=== PATIENT | male | born 1970 | race Caucasian/White ===

== ENCOUNTER 2024-11-13 10:15 | Day surgery (SDC) | payer OTHER ==
[~2024-11-13] VITALS: Ht 170.2 cm; Wt 84.3 kg
[~2024-11-13 10:15] MED LIST: ACETAMINOPHEN 1000MG/100ML IV BAG As Ordered ONE; GLYCOPYRROLATE INJ 0.2 MG/ML 2 ML VIAL As Ordered ONE; HYDR50TA70 PO; KETOROLAC 30 MG/ML 1ML VIAL As Ordered ONE; LIDOCAINE 2% 100MG/5ML SDV (FOR ANES.) As Ordered ONE; LISI20TA33 PO; LISI20TA35 PO; MELO15TA28 PO; MIDAZOLAM INJ 2MG/2ML VIAL As Ordered ONE; NIFE10CA61 PO; OMEP-173 PO; ONDANSETRON 4MG 2ML VIAL As Ordered ONE; ROSU10TA61 PO; SILD50TA2 PO; fentaNYL 100 MCG/2 ML INJECTION As Ordered ONE; propofoL 200 MG/20 ML VIAL As Ordered ONE
[2024-11-13] MEDS ORDERED: LR 1,000 ML IV SCH ×2 (10:30→13:00)
[2024-11-13] MEDS: ceFAZolin SOD 2 GM IV ONCE IV ONE (11:53)
[2024-11-13] MEDS: LIDOCAINE 1% MDV 20ML VIAL As Ordered ONE (11:56)
[2024-11-13] MEDS ORDERED: ONDANSETRON 4MG 2ML VIAL IV PRN (13:00)
[2024-11-13] MEDS ORDERED: HYDROMORPHONE HCL 0.5 MG/ 0.5 ML SYRINGE IV PRN (13:00)
[2024-11-13] MEDS ORDERED: fentaNYL 100 MCG/2 ML INJECTION IV PRN (13:00)
[2024-11-13] MEDS: oxyCODONE 5MG TAB PO PRN (13:20)
[2024-11-13 13:54] VITALS: BP 125/77; TEMP 97.7; O2SAT 98
== END 2024-11-13 13:57 | disposition home or self-care (01) ==
LOC: M SDC 10:15
PROVIDERS: ATTEND Podiatrist Foot & Ankle Surgery
DX: M21.611 Bunion of right foot (principal); I10 Essential (primary) hypertension; E78.5 Hyperlipidemia, unspecified; K21.9 Gastro-esophageal reflux disease without esophagitis; F43.10 Post-traumatic stress disorder, unspecified; G47.33 Obstructive sleep apnea (adult) (pediatric); Z79.899 Other long term (current) drug therapy
CPT/HCPCS: 28297; 76000; C1602; C1713; J0131; J0665; J0690; J1100; J1596; J1885; J2250; J2405; J3010